=== PATIENT | female | born 1975 | race Two or more races ===

== ENCOUNTER → 2024-04-18 | Outpatient (CLI) | payer MEDICAID, SELFPAY ==
--- NOTE | 2024-04-18 13:15 | XR_ITS ---
Examination: Screening digital mammography, bilateral Computer aided detection 3-D breast Tomosynthesis, bilateral Date and time of exam: April 18, 2024 1259 hours Compared to mammograms dating to 01/22/2021 Indication: Screening Technique: Nonmagnified MLO, CC views of the breasts to been obtained, reconstructed from 3-D Tomosynthesis images. R2 computer aided detection program utilized for evaluation of suspicious masses and/or abnormal calcifications. 3-D Tomosynthesis images obtained. Findings: Scattered areas of fibroglandular density 14 mm focal asymmetry inner slightly upper right breast 8 mm focal asymmetry inner upper left breast Impression: BI-RADS Category 0: Incomplete: Need additional imaging evaluation 14 mm focal asymmetry inner slightly upper right breast, recommend follow-up spot tomographic views 8 mm focal asymmetry inner upper left breast, recommend follow-up spot tomographic views Recommend bilateral breast sonography follow-up to complete the workup
== END | disposition home or self-care (01) ==
LOC: CDIM 12:51
PROVIDERS: Referring Provider Physician Assistant; Visit Provider Physician Assistant
DX: Z12.31 Encounter for screening mammogram for malignant neoplasm of breast (principal); R92.8 Other abnormal and inconclusive findings on diagnostic imaging of breast; N64.89 Other specified disorders of breast
CPT/HCPCS: 77063; 77067

== ENCOUNTER → 2024-07-25 | Outpatient (CLI) | payer MEDICAID, SELFPAY ==
--- NOTE | 2024-07-25 12:53 | XR_ITS ---
Examination: Diagnostic digital mammography, bilateral Computer aided detection 3-D breast Tomosynthesis, bilateral Date and time of exam: July 25, 2024 1321 hours INDICATIONS: Mammogram April 18, 2024 14 mm focal asymmetry inner right breast 8 mm focal asymmetry inner upper left breast Technique: Nonmagnified MLO, CC views of the breasts to been obtained, reconstructed from 3-D Tomosynthesis images. R2 computer aided detection program utilized for evaluation of suspicious masses and/or abnormal calcifications. 3-D Tomosynthesis images obtained. Findings: Scattered areas of fibroglandular density Focal asymmetry remains inner right breast on the CC view No suspicious left breast mass noted Impression: BI-RADS Category 3: Probably benign findings One additional 6 month right mammogram follow-up is needed to document stability of focal asymmetry inner right breast noted on the current study, 10 mm.
--- NOTE | 2024-07-25 13:00 | XR_ITS ---
Examination: Breast ultrasound complete, bilateral Date and time of exam: July 25, 2024 1305 hours INDICATIONS: Mammogram April 18, 2024 14 mm focal asymmetry upper right breast 8 mm focal asymmetry inner upper left breast Technique: Real-time grayscale ultrasonographic imaging bilateral breasts, including all 4 quadrants as well as nipple retroareolar and axillary regions. Findings: Sonographic images right breast 2:00 oval mass indistinct margins 11 x 6 x 8 mm Sonographic images left breast 9:00 circumscribed nodule 4 x 4 millimeter IMPRESSION: BI-RADS Category 4: Suspicious for malignancy Suspicious mass 2:00 position right breast, biopsy is needed to exclude breast carcinoma, this mass is amenable to ultrasound-guided breast biopsy for diagnosis
== END | disposition home or self-care (01) ==
LOC: CDIM 12:44
PROVIDERS: PCP Family Medicine; Referring Provider Family Medicine; Visit Provider Family Medicine
DX: R92.333 Mammographic heterogeneous density, bilateral breasts (principal); N63.12 Unspecified lump in the right breast, upper inner quadrant; N64.89 Other specified disorders of breast
CPT/HCPCS: 76641; 77062; 77066; G0279

== ENCOUNTER → 2024-09-26 | Outpatient (CLI) | payer MEDICAID, SELFPAY ==
[2024-09-25 13:24] LABS: Basophils # (Auto) 0.1 Thou/mm3 (0.0-0.2); Basophils % (Auto) 1 % (0-2.5); Eosinophils # (Auto) 0.2 Thou/mm3 (0.0-0.5); Eosinophils % (Auto) 2 % (0-10); Hematocrit 38.7 % (36.0-46.0); Hemoglobin 13.5 g/dL (12.0-16.0); Immature Granulocytes % (Auto) 0 % (0-0); Immature Granulocytes Auto 0.02 Thou/mm3 (0.00-0.00); Lymphocytes # (Auto) 2.4 Thou/mm3 (1.0-4.8); Lymphocytes % (Auto) 29 % (10-50); Mean Corpuscular HGB Conc 34.9 g/dl (31.0-37.0); Mean Corpuscular Volume 89 fL (80-100); Monocytes # (Auto) 0.6 Thou/mm3 (0.0-0.8); Monocytes % (Auto) 7 % (0-12); Neutrophils # (Auto) 4.9 Thou/mm3 (1.8-7.7); Neutrophils % (Auto) 61 % (37-80); Nucleated Red Blood Cell % 0 /100 WBC (0); Platelet Count 321 Thou/mm3 (140-440); RDW Standard Deviation 45.1 fL (36.4-46.3); Red Blood Count 4.35 Miln/mm3 (4.00-5.20); White Blood Count 8.1 Thou/mm3 (3.6-11.0)
[2024-09-25 13:37] LABS: HCG,Qualitative Serum Negative; INR 1.1 (0.9-1.3); Partial Thromboplastin Time 29.4 Seconds (22.0-36.0); Prothrombin Time 11.7 Seconds (9.0-12.2)
--- NOTE | 2024-09-26 08:30 | XR_ITS ---
Examinations: Ultrasound-guided percutaneous breast biopsy, right breast 2:00 nodule Right breast sonography limited INDICATIONS: BI-RADS 4 suspicious nodule 2:00 position right breast on right breast sonogram July 25, 2024. Exam date and time: September 26, 2024 0922 hours. Informed consent provided. Technique: A timeout was completed verifying correct patient, procedure, site, positioning, and special equipment if applicable Informed consent provided. The patient was placed in a supine position for the breast biopsy. Sonographic images of the breast were performed for localization of the suspicious nodule The patient's breast was prepped and draped in sterile fashion. Maximum sterile barrier technique, hand hygiene, ultrasound sterile technique 1% lidocaine was used to anesthetize the skin and breast adjacent to the suspicious nodule. Utilizing ultrasonographic guidance, 8 core biopsies were obtained of the suspicious nodule utilizing an 18-gauge BioPince needle. The specimens appears satisfactory. US guided breast biopsy marker placement. Estimated blood loss 3 cc. The patient tolerated the procedure well and there were no complications. Impression: Successful ultrasound-guided percutaneous breast biopsy, right breast 2:00 nodule. Ultrasound guided breast biopsy marker placement.
== END | disposition home or self-care (01) ==
PROVIDERS: Radiology Diagnostic Radiology
DX: C50.211 Malignant neoplasm of upper-inner quadrant of right female breast (principal); Z17.0 Estrogen receptor positive status [ER+]; Z17.21 Progesterone receptor positive status; Z17.32 Human epidermal growth factor receptor 2 negative status; Z01.812 Encounter for preprocedural laboratory examination
CPT/HCPCS: 19083; 36415; 84703; 85025; 85610; 85730; A4648

== ENCOUNTER 2024-10-17 07:50 | Outpatient (RCR) | payer MEDICAID, SELFPAY ==
--- NOTE | 2024-10-17 09:53 | CTCCONSULT_ITS ---
[facility] [address] [place], [place] [address] Consultation Note Date: 10/17/2024 MR#: [id number] Name: PREMA MILLS : 1975 Dx: C50.211 Malignant neoplasm of upper-inner quadrant of right female breast Referring physician. [facility] Jenna/Bautista Silveira CNM Reason for consultation. Patient with right breast CA status postbiopsy referred to the cancer center. History of Present Illness: Patient is a 49-year-old lady who felt a right breast lump had a bilateral equivocal lesions in mammogram being followed by primary care physician, and with right breast ultrasound 07/25/2024 showing suspicious 2:00 right breast lesion 11 x 6 x 8 mm underwent on 09/26/2024 ult rasound-guided biopsy revealing invasive ductal carcinoma 0.9 cm. ER positive CA positive HER2/lowell negative Ki67 5 to 10%. Patient has also been referred to Dr. Lester who will see patient soon. Patient now referred to the cancer treatment center. Past Medical history: History of chickenpox Meds. baclofen ibuprofen Allergies none to meds Social History: Patient Z[place]ian-speaking has been working in the [employer] currently not working denies smoking drinking Family history. Denies cancer history Review of Systems: Under stress due to 's recent heart attack and inability to work. Physical Exam: General: Adequate nourished appearing lady no acute distress HEENT: Atraumatic normocephalic extraocular intact no oral lesion no cervical or supraclavicular adenopathy. CV: Breast not examined today chest clear to auscultation heart regular rate and rhythm ABD: Soft no organomegaly or tenderness EXT: No cyanosis clubbing or edema. Assessment:1. Patient with invasive ductal carcinoma ER/CA positive HER2/lowell negative, following biopsy of T1 size lesion in right breast 2. Patient will be seeing medical oncologist Dr. Lester in about 2 weeks 3. Appointment to have her be seen by general surgeon. 4. Discussed with patient about the various types of scenarios depending on her stage of breast cancer and all the clinical and pathologic information that will be collected soon. 5. Thank you very much for allowing us to evaluate and manage this patient. [facility] Jenna/Bautista Hoffman CNM Electronically signed by: Tenzin Perry MD, PRIYAR 10/17/2024 9:51 AM
== END 2024-11-04 23:59 | disposition home or self-care (01) ==
LOC: SCTC 07:50
PROVIDERS: PCP Family Medicine; Visit Provider Radiology Therapeutic Radiology
DX: C50.211 Malignant neoplasm of upper-inner quadrant of right female breast (principal); Z17.0 Estrogen receptor positive status [ER+]; Z17.21 Progesterone receptor positive status; Z17.32 Human epidermal growth factor receptor 2 negative status
CPT/HCPCS: 99213; G0463

== ENCOUNTER 2024-11-22 07:00 | Day surgery (SDC) | payer MEDICAID, SELFPAY ==
[2024-11-20 11:00] VITALS: BMI 30.2
[2024-11-20 11:45] LABS: Basophils # (Auto) 0.0 Thou/mm3 (0.0-0.2); Basophils % (Auto) 0 % (0-2.5); Eosinophils # (Auto) 0.1 Thou/mm3 (0.0-0.5); Eosinophils % (Auto) 2 % (0-10); Hematocrit 40.4 % (36.0-46.0); Hemoglobin 13.8 g/dL (12.0-16.0); Immature Granulocytes Auto 0.01 Thou/mm3 (0.00-0.00); Lymphocytes # (Auto) 2.5 Thou/mm3 (1.0-4.8); Lymphocytes % (Auto) 36 % (10-50); Mean Corpuscular HGB Conc 34.2 g/dl (31.0-37.0); Mean Corpuscular Hemoglobin 30.9 pg (25.0-35.0); Mean Corpuscular Volume 90 fL (80-100); Monocytes # (Auto) 0.6 Thou/mm3 (0.0-0.8); Monocytes % (Auto) 8 % (0-12); Neutrophils # (Auto) 3.8 Thou/mm3 (1.8-7.7); Neutrophils % (Auto) 54 % (37-80); Nucleated Red Blood Cell # 0.00 Thou/mm3 (0.00-0.00); Nucleated Red Blood Cell % 0 /100 WBC (0); Platelet Count 304 Thou/mm3 (140-440); RDW Standard Deviation 44.7 fL (36.4-46.3); Red Blood Count 4.47 Miln/mm3 (4.00-5.20); White Blood Count 7.0 Thou/mm3 (3.6-11.0)
[2024-11-20 12:07] LABS: Alanine Aminotransferase 14 U/L (10-49); Albumin, Serum 4.4 gm/dL (3.5-5.0); Albumin/Globulin Ratio 1.4 (1.2-2.2); Alkaline Phosphatase 116 U/L (46-116); Anion Gap 10 (7-16); Aspartate Amino Transferase 19 U/L (0-34); BUN/Creatinine Ratio 17 Ratio (12-20); Bilirubin,Total 1.5 mg/dL (0.3-1.2); Blood Urea Nitrogen 12 mg/dL (9-23); Calcium 9.4 mg/dL (8.3-10.6); Calcium (Corrected) 9.4 mg/dL (8.5-10.1); Carbon Dioxide 26.4 mMol/L (20.0-31.0); Chloride 107 mMol/L (98-107); Creatinine (Component) 0.7 mg/dL (0.6-1.3); Estimated Creatinine Clearance 87.6 mL/min (>60); Globulin 3.1 gm/dL (2.3-3.5); Glucose 91 mg/dL (74-106); Osmolality,Calculated 284 (275-295); Potassium 4.2 mMol/L (3.4-5.1); Sodium 143 mMol/L (136-145); Total Protein 7.5 gm/dL (5.7-8.2); eGFR > 60 See Note
[2024-11-20 12:11] LABS: INR 1.1 (0.9-1.3); Partial Thromboplastin Time 28.2 Seconds (22.0-36.0); Prothrombin Time 11.5 Seconds (9.0-12.2)
[2024-11-20 12:23] LABS: HCG,Qualitative Serum Negative
[2024-11-22] VITALS (8 sets, daily range): BP systolic 119–151; BP diastolic 73–90; PULSE 56–65; RESP 12–21; TEMP 36.2–36.3; O2SAT 96–100; BMI 32.1
--- NOTE | 2024-11-22 | XR_ITS ---
Examination: Mammogram breast tissue specimen Date and time: November 22, 2024 1517 hours INDICATIONS: Postop resection biopsy positive for carcinoma lesion 2:00 position right breast FINDINGS: Breast biopsy lesion and breast marker in the central the specimen IMPRESSION: Breast lesion and biopsy marker in the center of the specimen
[2024-11-22] MEDS: RINGERS LACTATED 1000 ML 1,000 ML 20 ML IV (08:04)
--- NOTE | 2024-11-22 08:05 | SUR.PREOP ---
Patient expressed gratitude for prayer before their procedure.
--- NOTE | 2024-11-22 09:00 | XR_ITS ---
Examination: Ultrasound-guided needle localization biopsy positive for carcinoma lesion 2:00 position right breast Ultrasound right breast Date and time: November 22, 2024 0846 hours INDICATIONS: Ultrasound-guided biopsy right breast 2:00 nodule September 26, 2024, positive for breast cancer, preop needle localization for surgical excision TECHNIQUE AND FINDINGS: Informed consent provided. Timeout performed. Skin prepped over the right breast and sterile drape applied hand hygiene ultrasound sterile technique 1% lidocaine administered for local anesthesia Utilizing ultrasonographic guidance 5 cm Kopan's needle placed in the biopsy positive lesion 2:00 position right breast 1 cc methylene blue introduced Acquired used and medial with the right Estimated blood loss 2 cc IMPRESSION: Successful ultrasound-guided needle localization biopsy positive for carcinoma lesion 2:00 position right breast
--- NOTE | 2024-11-22 09:00 | XR_ITS ---
Examination: Nuclear medicine lymph glands imaging [place] lymph node study November 22, 2024 at 0900 hours INDICATIONS: Biopsy positive for carcinoma malignant neoplasm right breast 2:00 lesion, preop surgical resection and lymph node dissection today TECHNIQUE AND FINDINGS: Informed consent provided. Timeout performed. Skin prepped over the right breast and sterile drape applied, hand hygiene 1% lidocaine administered for local anesthesia 2.2 mCi technetium 99m filtered sulfur colloid introduced retroareolar No imaging Estimated blood loss 0 cc IMPRESSION: Successful sentinel lymph node study as above
--- NOTE | 2024-11-22 15:45 | SUR.PHASEI ---
1545: Pt arrived with oral airway in place, vitals stable, breathing unlabored, no signs of distress, dressing to right breast CDI, no active bleed noted, bilateral radial pulses strong and regular, report received from MD Heaton and Rochelle ROLDAN.
--- NOTE | 2024-11-22 16:02 | ESOP_ITS ---
Date of Procedure 11/22/24 Pre Op Diagnosis Infiltrating ductal carcinoma of the right breast at 2 o'clock position Post Op Diagnosis Same Procedure Guidewire localization and removal of breast cancer at 2 o'clock position on the right breast [place] node biopsy of the right axilla Findings Patient was found to have 1 lymph node that was more than a centimeter in diameter there is positive for radioactive uptake. She also had a palpable tiny lesion over the right breast which was localized with the radiologist Procedure Description Out the patient was taken to the x-ray suite she underwent ultrasound-guided guidewire localization over the right breast cancer which was located upper and inner quadrant of the right breast at 2 o'clock position. Methylene blue was injected by the radiologist. She also had a technetium radioisotope injected over the right areola. Patient was then brought to the operating room and given general anesthesia with LMA. The right breast and the right chest in the right axilla along with the right upper extremity were all washed with ChloraPrep solution and draped in a sterile manner. Timeout was performed. Then using a neoprobe I first made an incision over the right axilla where there was an uptake. This axillary incision was about 5 to 6 cm in length. A diligent search was made looking for a lymph node which was located rather deep. 1 small non sentinel node was removed and the other prominent sentinel node was removed with showed good uptake of the radioisotope. R then the axillary incision was closed in layers using 3-0 chromic sutures with SH needle. After injecting local anesthesia the skin was closed with 4-0 Monocryl subcuticular stitch. Then attention was turned onto the right breast and I made a curved incision little bit away from the areolar margin. Using Dayanara retractors I dissected of the subcutaneous tissue on the breast tissue. Valeria clamp was used after and after I identifying the methylene blue stained tissues I removed the entire lump which was palpable. An x-ray was obtained of the specimen which showed satisfactory margin over the lump which also had biopsy marker along with. It appeared that the lump has been removed completely with the decent margin. I took some additional margin which was stained with methylene blue and it was labeled as superior margin. The bleeding points are controlled with cautery and some of them were suture-ligated with 3-0 chromic. The breast tissue was closed using 3-0 chromic in the subcutaneous tissue also was closed with 3-0 chromic. I injected half percent Marcaine for analgesia and the skin was closed with 4-0 Monocryl subcuticular stitch. Dressing was applied with Adaptic and fluff and compression with extra-large breast binder. Patient tolerated the procedure well and left to recovery room in stable condition Anesthesia other (General LMA) Pathology / specimen Other (1. 2 sentinel nodes, #2 primary lesion with clip, #3 additional superior margin, #4 axillary fat) IVF Infused 1,100 Estimated Blood Loss 100 Condition Stable Disposition PACU Surgeon Manjo Mims MD Surgical Staff Operation Date: 11/22/24 12:45 Case Staff Anesthesiologist: Volodymyr Heaton Anesthesiologist: Martin Apodaca RN First Assistant: Stiven Reddy
--- NOTE | 2024-11-22 16:45 | SUR.PHASEII ---
1645: Pt. AAOx4, vitals stable, breathing unlabored, no complaint of pain or nausea, dressing to right breast CDI, no active bleed noted, pt. tolerated sips of water well, pt. ambulated to wheelchair with steady gait and no assist, no complications. Gave discharge instructions to the pt. and her family using court interpreter, both verbalized understanding and had no further questions. Pt. left with all personal belongings.
== END 2024-11-22 16:45 | disposition home or self-care (01) ==
PROVIDERS: Anesthesiology; PCP Family Medicine; Referring Provider Surgery; Visit Provider Surgery
PROC: (CPT 38500; principal; 2024-11-22 12:30)
DX: C50.211 Malignant neoplasm of upper-inner quadrant of right female breast (principal)
CPT/HCPCS: 19125; 38500; 19285; 36415; 76098; 80053; 84703; 85025; 85610; 85730; A4217; A4648; A4649; A9541; J0131; J1100; J1885; J2250; J2405; J2704; J3010; J3490; J7120

== ENCOUNTER 2024-12-05 08:24 | Outpatient (RCR) | payer MEDICAID, SELFPAY ==
--- NOTE | 2024-11-06 15:31 | CTCCONSULT_ITS ---
Patient: PREMA MILLS : 1975 MR#: [id number] Page 2 of 2 CONSULTATION NOTE DATE OF CONSULTATION: 11/06/2024 NAME: PREMA IMLLS ACCOUNT: [id number] : 1975 AGE: 49 REFERRING PHYSICIAN: Gentry Benitez MD PRIMARY PHYSICIAN: Gentry Benitez MD REASON FOR VISIT: Invasive ductal carcinoma of the breast ONCOLOGY HISTORY: DIAGNOSIS: Malignant neoplasm of upper-inner quadrant of right female breast [ICD10] C50.211 DATE OF DIAGNOSIS: 09/26/2024 STAGE/TNM: Unknown TREATMENT HISTORY: Care?Plan Start?Date Cycle Day Intent HISTORY OF PRESENT ILLNESS: 49-year-old female here for establishing care. Patient was diagnosed with mammogram and had biopsy which showed invasive ductal carcinoma patient is yet to establish with surgeon. OTHER MEDICAL HISTORY/CONDITIONS: Invasive ducatl carcinoma right breast - 09/26/24 C?SECT?X?1 FAMILY HISTORY: Patient?denies?family?cancer?history. 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 No Medications Medications Last Reconciled by Bushra Gustafson RN on 11/06/2024 ALLERGIES: No Known Drug Allergies REVIEW OF SYSTEMS: A complete 14-point review of systems was performed and is negative except as noted in interval history. PHYSICAL EXAMINATION: VITAL SIGNS: Temperature?98.9, B/P?115/72, Height?59?inches, Oxygen?Saturation?99% Weight?160?lbs (Change?since?10/17/24:?-2?lbs) PAIN: 0 - No pain ECOG Performance Status: 1 - Symptomatic; ambulatory; restricted in strenuous activity GENERAL APPEARANCE: Appears well, in no apparent distress, appropriately interactive. HEENT: Normocephalic, no temporal wasting, normal conjunctiva, no scleral icterus, normal hearing, lips without lesions, neck normal range of motion. CARDIOVASCULAR: Not assessed. PULMONARY: Normal respiratory effort, no respiratory distress or use of accessory muscles, speaking in full sentences, no tachypnea. EXTREMITIES: No pedal edema or cyanosis. SKIN: Normal skin appearance. NEUROLOGIC: Alert and oriented x4. PSHYCHIATRIC: Appropriate affect, mood normal, behavior normal, intact thought and speech. LABORATORY DATA: I have personally reviewed and interpreted each of Ms. Carson relevant lab tests, abnormal findings are below: Date ASSESSMENT/PLAN: Right breast invasive ductal carcinoma ER/VT positive HER2 negative Advised patient to undergo lumpectomy or mastectomy as decided between patient and surgeon Once patient has completed surgery we will see her back and make treatment plan Patient will need Oncotype DX ordered on her surgery specimen RTC in 3 to 4 weeks ORDERS: Order # Description [id number] MD Follow Up 2 Months [id number] MD Follow Up 4 Week RETURN TO CLINIC: I reviewed the diagnosis, prognosis, and recommended treatment/procedure options with the patient (and/or their legal employee representative), including the potential benefits, risks, side effects and alternative therapies. We also discussed the option of no treatment and the possibility of clinical trial participation, if applicable. All questions were addressed, and they demonstrated understanding. They provided informed consent to proceed with the proposed plan of care. BILLING AND COMPLIANCE: I reviewed external records from providers outside my specialty as summarized above. I spent a total of 50 minutes on this patient?s care on the day of their visit excluding time spent related to any billed procedures. This time includes time spent with the patient as well as time spent documenting in the medical record, reviewing patients records and tests, obtaining history, placing orders, communicating with other healthcare professionals, counseling the patient, family or caregiver, and/or care coordination for the diagnoses above. Electronically Signed by: Rudi Lester MD T: 3:28 PM CC: PCP: Gentry Benitez Referring: Gentry Benitez This document was completed utilizing speech recognition software. Grammatical errors, random word insertions, pronoun errors, and incomplete sentences are an occasional consequence of this system due to software limitations, ambient noise, and hardware issues. Any formal questions or concerns about the content, text or information contained within the body of this dictation should be directly addressed to the provider for clarification.
== END 2024-12-05 23:59 | disposition home or self-care (01) ==
LOC: SCTC 08:24
PROVIDERS: PCP Family Medicine; Referring Provider Family Medicine; Visit Provider Radiology Therapeutic Radiology
DX: C50.211 Malignant neoplasm of upper-inner quadrant of right female breast (principal); Z17.0 Estrogen receptor positive status [ER+]; Z17.21 Progesterone receptor positive status; Z17.32 Human epidermal growth factor receptor 2 negative status
CPT/HCPCS: 99213; G0463

== ENCOUNTER 2024-12-10 11:42 | Outpatient (RCR) | payer MEDICAID, SELFPAY ==
--- NOTE | 2024-12-16 01:35 | CTCFLWUP_ITS ---
Patient: PREMA MILLS : 1975 Page 5 of 6 FOLLOW UP NOTE DATE OF SERVICE: 12/10/2024 NAME: PREMA MILLS ACCOUNT: [id number] : 1975 AGE: 49 INTERVAL HISTORY: ONCOLOGY HISTORY: DIAGNOSIS: Malignant neoplasm of upper-inner quadrant of right female breast [ICD10] C50.211 DATE OF DIAGNOSIS: 09/26/2024 STAGE/TNM: T1b N0 M0 Oncotype pending TREATMENT HISTORY: Care?Plan Start?Date Cycle Day Intent HISTORY OF PRESENT ILLNESS: 49-year-old female here for establishing care. Patient was diagnosed with mammogram and had biopsy which showed invasive ductal carcinoma patient is yet to establish with surgeon. OTHER MEDICAL HISTORY/CONDITIONS: Invasive ducatl carcinoma right breast - 09/26/24 C?SECT?X?1 FAMILY HISTORY: Patient?denies?family?cancer?history. 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 tamoxifen - 20 mg 1 tab Daily Medications Last Reconciled by Dolly Baxter MD on 12/10/2024 ALLERGIES: No Known Drug Allergies REVIEW OF SYSTEMS: A complete 14-point review of systems was performed and is negative except as noted in interval history. PHYSICAL EXAMINATION: VITAL SIGNS: Temperature?98.6, B/P?120/74, Oxygen?Saturation?97% Weight?159?lbs (Change?since?12/05/24:?-1?lbs) PAIN: 0 - No pain ECOG Performance Status: 0 - Asymptomatic and fully active GENERAL APPEARANCE: Appears well, in no apparent distress, appropriately interactive. HEENT: Normocephalic, no temporal wasting, normal conjunctiva, no scleral icterus, normal hearing, lips without lesions, neck normal range of motion. CARDIOVASCULAR: Not assessed. PULMONARY: Normal respiratory effort, no respiratory distress or use of accessory muscles, speaking in full sentences, no tachypnea. EXTREMITIES: No pedal edema or cyanosis. SKIN: Normal skin appearance. NEUROLOGIC: Alert and oriented x4. PSHYCHIATRIC: Appropriate affect, mood normal, behavior normal, intact thought and speech. LABORATORY DATA: I have personally reviewed and interpreted each of the patient?s relevant lab tests, abnormal findings are below: Date 11/20/24 ??WHITE?BLOOD?COUNT?(Thou/mm3) 7.0 ??RED?BLOOD?COUNT?(Miln/mm3) 4.47 ??HEMOGLOBIN?(gm/dl) 13.8 ??HEMATOCRIT?(%) 40.4 ??PLATELET?COUNT?(Thou/mm3) 304 ??NEUTROPHILS?%,?AUTO?(%) 54 ??LYMPH?%,?AUTO?(%) 36 ??NEUTROPHILS,?AUTO?(Thou/mm3) 3.8 ??GLUCOSE,RANDOM?(mg/dL) 91 ??BLOOD?UREA?NITROGEN?(mg/dL) 12 ??CREATININE?(mg/dL) 0.70 ??SODIUM?(mmol/L) 143 ??POTASSIUM?(mmol/L) 4.2 ??CHLORIDE?(mmol/L) 107 ??CrCl?(CandG)?(ml/min) 88.69 ??AST/SGOT?(Unit/L) 19 ??ALT/SGPT?(Unit/L) 14 ??ALKALINE?PHOSPHATASE?(Unit/L) 116 ??BILIRUBIN,?TOTAL?(mg/dL) 1.5?H ??PROTEIN?TOTAL?(gm/dl) 7.5 ??ALBUMIN,?SERUM?(gm/dl) 4.4 ??GLOBULIN?(gm/dl) 3.1 ??ALBUMIN/GLOBULIN?RATIO 1.4 ??CALCIUM,?SERUM?(mg/dL) 9.4 ??CALCIUM?SERUM?(CORRECTED)?(mg/dL) 9.4 ASSESSMENT/PLAN: Right breast invasive ductal carcinoma ER/TN positive HER2 negative Patient completed right breast lumpectomy Tumor is about 0.7 cm Will need Oncotype DX before deciding on chemotherapy Will start on antiendocrine therapy Will do baseline hormone testing Advised to start taking tamoxifen after patient has completed labs ORDERS: Order # Description [id number] Estradiol + Gonadotropin (Fsh) + Gonadotropin; Luteinizing Hormone (Lh) [id number] RETURN TO CLINIC: I reviewed the diagnosis, prognosis, and recommended treatment/procedure options with the patient (and/or their legal 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 We also discussed the option of no treatment and the possibility of clinical trial participation, if applicable. All questions were addressed, and they demonstrated understanding. They provided informed consent to proceed with the proposed plan of care. BILLING AND COMPLIANCE: I reviewed external records from providers outside my specialty as summarized above. I spent a total of 50 minutes on this patient?s care on the day of their visit excluding time spent related to any billed procedures. This time includes time spent with the patient as well as time spent documenting in the medical record, reviewing patients records and tests, obtaining history, placing orders, communicating with other healthcare professionals, counseling the patient, family or caregiver, and/or care coordination for the diagnoses above. Electronically Signed by: {Object.Sanct_ID*PnP.NameFL@M}, {Object.Sanct_ID*PnP.Suffix@U} D: {Object.Sanct_Date} T: {Object.Sanct_Time} CC: PCP: Dougie Carlson Referring: Dougie Carlson This document was completed utilizing speech recognition software. Grammatical errors, random word insertions, pronoun errors, and incomplete sentences are an occasional consequence of this system due to software limitations, ambient noise, and hardware issues. Any formal questions or concerns about the content, text or information contained within the body of this dictation should be directly addressed to the provider for clarification.
== END 2025-01-05 23:59 | disposition home or self-care (01) ==
LOC: SCTC 11:42
PROVIDERS: PCP Family Medicine; Referring Provider Family Medicine; Visit Provider Internal Medicine Hematology & Oncology
DX: C50.211 Malignant neoplasm of upper-inner quadrant of right female breast (principal); Z17.0 Estrogen receptor positive status [ER+]; Z17.21 Progesterone receptor positive status; Z17.32 Human epidermal growth factor receptor 2 negative status; Z90.11 Acquired absence of right breast and nipple; Z79.810 Long term (current) use of selective estrogen receptor modulators (SERMs)
CPT/HCPCS: 99212; G0463

== ENCOUNTER 2025-02-04 08:19 | Outpatient (RCR) | payer MEDICAID, SELFPAY ==
--- NOTE | 2025-01-07 10:28 | CTCFLWUP_ITS ---
Patient: PREMA MILLS : 1975 Page 4 of 5 FOLLOW UP NOTE DATE OF SERVICE: 01/07/2025 NAME: PREMA MILLS ACCOUNT: [id number] : 1975 AGE: 49 INTERVAL HISTORY: Patient is here to follow on oncotype dx and is 7 . no benefit of chemotherapy . ONCOLOGY HISTORY: DIAGNOSIS: Malignant neoplasm of upper-inner quadrant of right female breast [ICD10] C50.211 DATE OF DIAGNOSIS: 09/26/2024 STAGE/TNM: T1b N0 M0 Oncotype 7 TREATMENT HISTORY: Care?Plan Start?Date Cycle Day Intent HISTORY OF PRESENT ILLNESS: 49-year-old female here for establishing care. Patient was diagnosed with mammogram and had biopsy which showed invasive ductal carcinoma .patient had lumpectomy and showed stage 1 cancer . OTHER MEDICAL HISTORY/CONDITIONS: Invasive ducatl carcinoma right breast - 09/26/24 C?SECT?X?1 FAMILY HISTORY: Patient?denies?family?cancer?history. 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 tamoxifen - 20 mg 1 tab Daily Medications Last Reconciled by Dolly Rodriguez MA on 01/07/2025 ALLERGIES: No Known Drug Allergies REVIEW OF SYSTEMS: A complete 14-point review of systems was performed and is negative except as noted in interval history. PHYSICAL EXAMINATION: VITAL SIGNS: Temperature?98, B/P?116/74, Oxygen?Saturation?96% Weight?159?lbs (Change?since?12/10/24:?0?lbs) GENERAL APPEARANCE: Appears well, in no apparent distress, appropriately interactive. HEENT: Normocephalic, no temporal wasting, normal conjunctiva, no scleral icterus, normal hearing, lips without lesions, neck normal range of motion. CARDIOVASCULAR: Not assessed. PULMONARY: Normal respiratory effort, no respiratory distress or use of accessory muscles, speaking in full sentences, no tachypnea. EXTREMITIES: No pedal edema or cyanosis. SKIN: Normal skin appearance. NEUROLOGIC: Alert and oriented x4. PSHYCHIATRIC: Appropriate affect, mood normal, behavior normal, intact thought and speech. LABORATORY DATA: I have personally reviewed and interpreted each of the patient?s relevant lab tests, abnormal findings are below: Date 11/20/24 ??WHITE?BLOOD?COUNT?(Thou/mm3) 7.0 ??RED?BLOOD?COUNT?(Miln/mm3) 4.47 ??HEMOGLOBIN?(gm/dl) 13.8 ??HEMATOCRIT?(%) 40.4 ??PLATELET?COUNT?(Thou/mm3) 304 ??NEUTROPHILS?%,?AUTO?(%) 54 ??LYMPH?%,?AUTO?(%) 36 ??NEUTROPHILS,?AUTO?(Thou/mm3) 3.8 ??GLUCOSE,RANDOM?(mg/dL) 91 ??BLOOD?UREA?NITROGEN?(mg/dL) 12 ??CREATININE?(mg/dL) 0.70 ??SODIUM?(mmol/L) 143 ??POTASSIUM?(mmol/L) 4.2 ??CHLORIDE?(mmol/L) 107 ??CrCl?(CandG)?(ml/min) 88.69 ??AST/SGOT?(Unit/L) 19 ??ALT/SGPT?(Unit/L) 14 ??ALKALINE?PHOSPHATASE?(Unit/L) 116 ??BILIRUBIN,?TOTAL?(mg/dL) 1.5?H ??PROTEIN?TOTAL?(gm/dl) 7.5 ??ALBUMIN,?SERUM?(gm/dl) 4.4 ??GLOBULIN?(gm/dl) 3.1 ??ALBUMIN/GLOBULIN?RATIO 1.4 ??CALCIUM,?SERUM?(mg/dL) 9.4 ??CALCIUM?SERUM?(CORRECTED)?(mg/dL) 9.4 ASSESSMENT/PLAN: Right breast invasive ductal carcinoma ER/NC positive HER2 negative Patient completed right breast lumpectomy Tumor is about 0.7 cm Oncotype dx is 7 , no benefit of chemotherapy Will start on antiendocrine therapy with tamoxifen Harmone testing do not confirm menopause Order # Description [id number] Follow Up 3 Months RETURN TO CLINIC: I reviewed the diagnosis, prognosis, and recommended treatment/procedure options with the patient (and/or their legal outbound call center representative), including the potential benefits, risks, side effects and alternative therapies. We also discussed the option of no treatment and the possibility of clinical trial participation, if applicable. All questions were addressed, and they demonstrated understanding. They provided informed consent to proceed with the proposed plan of care. BILLING AND COMPLIANCE: I reviewed external records from providers outside my specialty as summarized above. I spent a total of 50 minutes on this patient?s care on the day of their visit excluding time spent related to any billed procedures. This time includes time spent with the patient as well as time spent documenting in the medical record, reviewing patients records and tests, obtaining history, placing orders, communicating with other healthcare professionals, counseling the patient, family or caregiver, and/or care coordination for the diagnoses above. Electronically Signed by: Rudi Lester MD T: 10:26 AM CC: PCP: Dougie Carlson Referring: Dougie Carlson This document was completed utilizing speech recognition software. Grammatical errors, random word insertions, pronoun errors, and incomplete sentences are an occasional consequence of this system due to software limitations, ambient noise, and hardware issues. Any formal questions or concerns about the content, text or information contained within the body of this dictation should be directly addressed to the provider for clarification.
== END 2025-02-04 23:59 | disposition home or self-care (01) ==
LOC: SCTC 08:19
PROVIDERS: PCP Family Medicine; Referring Provider Family Medicine; Visit Provider Radiology Therapeutic Radiology
DX: Z51.0 Encounter for antineoplastic radiation therapy (principal); C50.211 Malignant neoplasm of upper-inner quadrant of right female breast; Z17.0 Estrogen receptor positive status [ER+]; Z17.21 Progesterone receptor positive status; Z17.32 Human epidermal growth factor receptor 2 negative status; Z90.11 Acquired absence of right breast and nipple; L59.8 Other specified disorders of the skin and subcutaneous tissue related to radiation; Y84.2 Radiological procedure and radiotherapy as the cause of abnormal reaction of the patient, or of later complication, without mention of misadventure at the time of the procedure; R53.0 Neoplastic (malignant) related fatigue; R51.9 Headache, unspecified
CPT/HCPCS: 77014; 77280; 77290; 77295; 77300; 77334; 77336; 77412; 77417; 99212; 99213; G0463

== ENCOUNTER 2025-03-04 08:15 | Outpatient (RCR) | payer MEDICAID, SELFPAY | END 2025-03-07 23:59 | disposition home or self-care (01) | LOC: SCTC 08:15 | PROVIDERS: PCP Family Medicine; Referring Provider Family Medicine; Visit Provider Radiology Therapeutic Radiology | DX: Z51.0 Encounter for antineoplastic radiation therapy (principal); C50.211 Malignant neoplasm of upper-inner quadrant of right female breast; Z17.0 Estrogen receptor positive status [ER+]; Z17.21 Progesterone receptor positive status; Z17.32 Human epidermal growth factor receptor 2 negative status; Z90.11 Acquired absence of right breast and nipple; Z79.810 Long term (current) use of selective estrogen receptor modulators (SERMs) | CPT/HCPCS: 77290; 77300; 77332; 77336; 77412; 77417; 99212; G0463 ==

== ENCOUNTER → 2025-03-24 | Outpatient (CLI) | payer MEDICAID, SELFPAY ==
[2025-03-24 08:54] LABS: Misc Send Out* See Sep Rpt
[2025-03-28 06:46] LABS: Estradiol, Ultrasensitive* 6 pg/mL
== END | disposition home or self-care (01) ==
LOC: SCTO 08:29
PROVIDERS: PCP Family Medicine; Referring Provider Internal Medicine Hematology & Oncology; Visit Provider Internal Medicine Hematology & Oncology
DX: C50.211 Malignant neoplasm of upper-inner quadrant of right female breast (principal)
CPT/HCPCS: 36415; 82670

== ENCOUNTER 2025-03-26 13:34 | Outpatient (RCR) | payer MEDICAID, SELFPAY ==
--- NOTE | 2025-03-26 14:58 | CTCFLWUP_ITS ---
[facility] [address] [place], [place] [address] FOLLOW-UP NOTE Date: 03/26/2025 MR#: [id number] Name: PREMA MILLS : 1975 Dx: C50.211 Malignant neoplasm of upper-inner quadrant of right female breast Patient with stage Ia receptor positive HER2/lowell negative partial mastectomy on tamoxifen completed XRT to the residual tissue right breast a month ago. Made an extra appointment to see me because of some discomfort in the right inframammary treatment site. There appears to be tiny lipoma-like area which I reassured the patient of. Patient has a follow-up in 5 months. If this appears to be changing or getting larger before then she is to make another appointment. Electronically signed by: Tenzin Perry M.D. 03/26/2025 2:56 PM
== END 2025-04-06 23:59 | disposition home or self-care (01) ==
LOC: SCTC 13:34
PROVIDERS: PCP Family Medicine; Referring Provider Family Medicine; Visit Provider Radiology Therapeutic Radiology
DX: C50.211 Malignant neoplasm of upper-inner quadrant of right female breast (principal); Z17.0 Estrogen receptor positive status [ER+]; Z17.21 Progesterone receptor positive status; Z17.32 Human epidermal growth factor receptor 2 negative status; Z90.11 Acquired absence of right breast and nipple; Z92.3 Personal history of irradiation; Z79.810 Long term (current) use of selective estrogen receptor modulators (SERMs)
CPT/HCPCS: 99212; G0463

== ENCOUNTER 2025-04-07 08:52 | Outpatient (AMB) | payer MEDICAID, SELFPAY ==
[2025-04-07 09:18] VITALS: BP 112/76; PULSE 62; RESP 18; TEMP 36.6; O2SAT 97; BMI 33.1
--- NOTE | 2025-04-07 09:18 | GYNCLNT_ITS ---
Vital Signs 04/07/25 09:18 Height 1.5 m Height Method Stated Weight 74.616 kg Weight Measurement Method Standing Scale BMI 33.1 BP 112/76 Blood Pressure Source Automatic Cuff Blood Pressure Location Left Upper Arm Position Sitting Respiration 18 Pulse 62 Pulse Source Monitor Temp 97.9 F Temp Source Temporal Artery Scan Pulse Oximetry (%) 97 Oxygen Delivery Method Room Air Allergies/Home Meds Allergies & Medications Allergies No Known Allergies Allergy (Verified 04/07/25 09:20) Medication Reconciliation tamoxifen 20 mg tablet 20 mg PO DAILY 11/20/24 [History Confirmed 04/07/25] Intake Visit Data Collection New Patient or Established: Established Patient (seen at [facility] within 3 years) Reason for Visit:: 49 years old with stage 1a R breast invasive ductal cancer and s/p lumpectomy on 11/22/2024 at [facility] and on Tamoxifen and she is referred for manager forensic consult for AUBleeding Seen by Clinical Staff ONLY (RN/MA): No Core Winder Machine Operator Required: Yes Core Winder Machine Operator's name/title: LEDY AMBROCIO MA Do You Feel Safe at Home: Yes Authorities Contacted: N/A PCP or OBGYN visit in last 3 months: No Hx Now: No Are you currently on any form of Control: No Pain Present Currently: No Pain Scale Used: Argueta-Hernandez/Numerical Pain scale:: 0 Smoking Status Smoking Status: Never smoker Immunizations Flu Vaccine in the Last 12 Months: No Flu Vaccine Exclusion Criteria: No Exclusion Criteria 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 Menstrual regularity: irregular Menopausal: Yes If menopausal, at what age did it occur: 48 Currently sexually active: No 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 1. Little interest or pleasure in doing things: not at all 2. Feeling down, depressed, or hopeless: not at all Total score: 0 PHQ-9 3. Trouble falling or staying asleep, or sleeping too much: Not at all 4. Feeling tired or having little energy: Not at all 5. Poor appetite or overeating: Not at all 6. Feeling bad about yourself - or that you are a failure or have let yourself or your family down: Not at all 7. Trouble concentrating on things, such as reading the newspaper or watching television: Not at all 8. Moving or speaking so slowly that other people could have noticed? - Or the opposite - being so fidgety or restless that you have been moving around a lot more than usual: not at all 9. Thoughts that you would be better off or of hurting yourself in some way : Not at all Total score: 0 If you checked off any problems, how difficult have these problems made it for you to do your work, take care of things at home, or get along with other people?: not difficult at all Source: Developed by Drs. Dereck Johnson, Kassie Chavez, Vic Fisher and colleagues, with an educational daily from [employer]. Depression screen completed yes Social History Living Situation History Marital Status: Lives With: Family Housing: House Tobacco History Smoking Status: Never smoker Second Hand Smoke Exposure: No Alcohol History Alcohol Intake: Never Domestic Abuse History Do You Feel Safe at Home: Yes History of Present Illness HPI Narrative 49 years old patient with Invasive upper inner R breast ductal cancer , s/p core biopsy in September 2024 and lumpectomy in 11/22/2024 /stage 1 a on tamoxifen . Patient had no periods x 6 months and then 1 day of spotting and she is sent for manager forensic evaluation / has a lot of hot flashes Review of Systems Review of Systems Narrative Review of Systems: Reviewed all 14 point review of systems and all is negative except as noted/ hot flashes Systems Reviewed: All systems reviewed, normal except as documented Exam Narrative Physical exam: Alert and oriented x 3 no shortness of breath Pain no chest pain no palpitations Chest clear bilaterally no additional sounds, no wheezing no rales CVS regular rate and rhythm Office Procedures OBC Clinic LOC & Office Proc's Nursing/Assessment Patient Status: Established Patient OB Clinic Nursing Assessment: Medication Reconciliation, Update PMH in EMR and Vital Signs OB Clinic Coordination of Care: Complex Care and Chronic Disease 1-5, Education Complex Pt/Fam, Consent,records obtained, informed consent, Lab and Imaging orders, Results/Orders obtained and Staff clarify orders Established Patient Charge Established Patient Point Assignment: 110 Established Patient Point Charge: EP Level 3 (80-115) Assessment & Plan Diagnosis / Problem List (1) Abnormal uterine bleeding: Status: Acute (2) Breast cancer: Status: Acute Qualifiers: Breast location: upper inner quadrant of breast Estrogen receptor status: positive Patient sex: female Laterality: right Qualified Code(s): C50.211 - Malignant neoplasm of upper-inner quadrant of right female breast; Z17.0 - Estrogen receptor positive status [ER+] (3) Hot flashes due to menopause: Status: Acute Plan pelvic and endovaginal US for AUB in a breast cancer patient and plan EMB vs hysteroscopy and D&C based on results / she had a Pap smear <1 year ago at [facility] and she is on Tamoxifen and that makes her higher risk to develop uterine polyps / She refused Veozah for hot flashes Additional Plan Follow Up: 3 Weeks
== END 2025-04-07 09:45 | disposition home or self-care (01) ==
LOC: HODSOBC 08:52
PROVIDERS: PCP Family Medicine; Referring Provider Family Medicine; Supervising Provider Obstetrics & Gynecology; Visit Provider Obstetrics & Gynecology
DX: N92.4 Excessive bleeding in the premenopausal period (principal); N95.1 Menopausal and female climacteric states; R23.2 Flushing; C50.211 Malignant neoplasm of upper-inner quadrant of right female breast
CPT/HCPCS: 99213; G0463

== ENCOUNTER 2025-04-08 11:21 | Outpatient (RCR) | payer MEDICAID, SELFPAY ==
--- NOTE | 2025-04-08 12:33 | CTCFLWUP_ITS ---
Patient: PREMA MILLS : 1975 Page 4 of 6 FOLLOW UP NOTE DATE OF SERVICE: 04/08/2025 NAME: PREMA MILLS ACCOUNT: [id number] : 1975 AGE: 49 INTERVAL HISTORY: 50 49-year-old woman here to follow-up on the breast cancer and lymphedema. Patient is complaining of pain in her right arm and unable to lift any weight. Patient is now having pain and she cannot sleep at night well. Patient is yet to see lymphedema expert. Patient is taking tamoxifen and have seen digital archivist and plan for pelvic ultrasound. ONCOLOGY HISTORY: DIAGNOSIS: Malignant neoplasm of upper-inner quadrant of right female breast [ICD10] C50.211 DATE OF DIAGNOSIS: 09/26/2024 STAGE/TNM: T1b N0 M0 Oncotype 7 TREATMENT HISTORY: Care?Plan Start?Date Cycle Day Intent HISTORY OF PRESENT ILLNESS: 49-year-old female here for establishing care. Patient was diagnosed with mammogram and had biopsy which showed invasive ductal carcinoma .patient had lumpectomy and showed stage 1 cancer . OTHER MEDICAL HISTORY/CONDITIONS: Invasive ducatl carcinoma right breast - 09/26/24 C?SECT?X?1 FAMILY HISTORY: Patient?denies?family?cancer?history. 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 Arimidex - 1 mg 1 tab Daily Medications Last Reconciled by Dolly Baxter MD on 02/17/2025 ALLERGIES: No Known Drug Allergies REVIEW OF SYSTEMS: A complete 14-point review of systems was performed and is negative except as noted in interval history. PHYSICAL EXAMINATION: VITAL SIGNS: Temperature?98.7, B/P?111/74, Oxygen?Saturation?97% Weight?164?lbs PAIN: 1 - Between no and mild pain ECOG Performance Status: 1 - Symptomatic; ambulatory; restricted in strenuous activity GENERAL APPEARANCE: Appears well, in no apparent distress, appropriately interactive. HEENT: Normocephalic, no temporal wasting, normal conjunctiva, no scleral icterus, normal hearing, lips without lesions, neck normal range of motion. CARDIOVASCULAR: Not assessed. PULMONARY: Normal respiratory effort, no respiratory distress or use of accessory muscles, speaking in full sentences, no tachypnea. EXTREMITIES: Right arm edematous and swollen with restricted ROM SKIN: Normal skin appearance. NEUROLOGIC: Alert and oriented x4. PSHYCHIATRIC: Appropriate affect, mood normal, behavior normal, intact thought and speech. LABORATORY DATA: I have personally reviewed and interpreted each of the patient?s relevant lab tests, abnormal findings are below: Date 11/20/24 ??WHITE?BLOOD?COUNT?(Thou/mm3) 7.0 ??RED?BLOOD?COUNT?(Miln/mm3) 4.47 ??HEMOGLOBIN?(gm/dl) 13.8 ??HEMATOCRIT?(%) 40.4 ??PLATELET?COUNT?(Thou/mm3) 304 ??NEUTROPHILS?%,?AUTO?(%) 54 ??LYMPH?%,?AUTO?(%) 36 ??NEUTROPHILS,?AUTO?(Thou/mm3) 3.8 ??GLUCOSE,RANDOM?(mg/dL) 91 ??BLOOD?UREA?NITROGEN?(mg/dL) 12 ??CREATININE?(mg/dL) 0.70 ??SODIUM?(mmol/L) 143 ??POTASSIUM?(mmol/L) 4.2 ??CHLORIDE?(mmol/L) 107 ??CrCl?(CandG)?(ml/min) 88.69 ??AST/SGOT?(Unit/L) 19 ??ALT/SGPT?(Unit/L) 14 ??ALKALINE?PHOSPHATASE?(Unit/L) 116 ??BILIRUBIN,?TOTAL?(mg/dL) 1.5?H ??PROTEIN?TOTAL?(gm/dl) 7.5 ??ALBUMIN,?SERUM?(gm/dl) 4.4 ??GLOBULIN?(gm/dl) 3.1 ??ALBUMIN/GLOBULIN?RATIO 1.4 ??CALCIUM,?SERUM?(mg/dL) 9.4 ??CALCIUM?SERUM?(CORRECTED)?(mg/dL) 9.4 ASSESSMENT/PLAN: Right breast invasive ductal carcinoma ER/MI positive HER2 negative Patient completed right breast lumpectomy Tumor is about 0.7 cm Oncotype dx is 7 , no benefit of chemotherapy Patient's labs reviewed and sensitivity study all shows postmenopause Last. About 3 years ago with some spotting last year Will start patient on anastrozole as patient having symptoms with the tamoxifen Patient states that she developed rash after starting tamoxifen Will continue anastrozole Calcium and vitamin D3 daily Bone density ordered Follow-up with the lymphedema clinic lymphedema sleeve supportive lumpectomy bras RTC in 3 months Order # Description [id number] MD Follow Up 3 Months ORDERS: Order # Description [id number] RETURN TO CLINIC: I reviewed the diagnosis, prognosis, and recommended treatment/procedure options with the patient (and/or their legal small business representative), including the potential benefits, risks, side effects and alternative therapies. We also discussed the option of no treatment and the possibility of clinical trial participation, if applicable. All questions were addressed, and they demonstrated understanding. They provided informed consent to proceed with the proposed plan of care. BILLING AND COMPLIANCE: I reviewed external records from providers outside my specialty as summarized above. I spent a total of 50 minutes on this patient?s care on the day of their visit excluding time spent related to any billed procedures. This time includes time spent with the patient as well as time spent documenting in the medical record, reviewing patients records and tests, obtaining history, placing orders, communicating with other healthcare professionals, counseling the patient, family or caregiver, and/or care coordination for the diagnoses above. Electronically Signed by: Rudi Lester MD T: 12:31 PM CC: PCP: No Primary/family, Physician Referring: Rudi Lester This document was completed utilizing speech recognition software. Grammatical errors, random word insertions, pronoun errors, and incomplete sentences are an occasional consequence of this system due to software limitations, ambient noise, and hardware issues. Any formal questions or concerns about the content, text or information contained within the body of this dictation should be directly addressed to the provider for clarification.
== END 2025-05-07 23:59 | disposition home or self-care (01) ==
LOC: SCTC 11:21
PROVIDERS: Referring Provider Internal Medicine Hematology & Oncology; Visit Provider Internal Medicine Hematology & Oncology
DX: C50.211 Malignant neoplasm of upper-inner quadrant of right female breast (principal); Z17.0 Estrogen receptor positive status [ER+]; Z17.21 Progesterone receptor positive status; Z17.32 Human epidermal growth factor receptor 2 negative status; Z90.11 Acquired absence of right breast and nipple; Z79.811 Long term (current) use of aromatase inhibitors; I89.0 Lymphedema, not elsewhere classified
CPT/HCPCS: 99213; G0463

== ENCOUNTER → 2025-04-10 | Outpatient (CLI) | payer MEDICAID, SELFPAY ==
--- NOTE | 2025-04-10 09:00 | XR_ITS ---
Examination: Pelvic ultrasound, transabdominal, complete Technique: Transabdominal ultrasound of the pelvis performed using grayscale imaging Date and time of exam: April 10, 2025, 0913 hours INDICATIONS: Vaginal bleeding beginning 6 months ago, breast cancer diagnosis November 2024 with lumpectomy FINDINGS: Uterus 9.8 cm endometrial stripe 0.2 cm No uterine mass Right ovary 2.6 cm arterial flow Left ovary 1.5 cm arterial flow IMPRESSION: Negative pelvic sonogram
== END | disposition home or self-care (01) ==
PROVIDERS: PCP Obstetrics & Gynecology; Referring Provider Obstetrics & Gynecology; Visit Provider Obstetrics & Gynecology
DX: N95.1 Menopausal and female climacteric states (principal); N93.9 Abnormal uterine and vaginal bleeding, unspecified; C50.211 Malignant neoplasm of upper-inner quadrant of right female breast; Z17.0 Estrogen receptor positive status [ER+]
CPT/HCPCS: 76856